=== PATIENT | male | born 1965 | race Caucasian/White ===

== ENCOUNTER → 2017-08-25 | Outpatient (CLI) | payer OTHER, MEDICAID ==
[~2017-08-25] MED LIST: ATOM80CA PO; CARV3.1212 PO; CHOL10002 PO; CYAN1TAB29 PO; TICA90TA PO; VENL150T PO; labetalol PO; lovastatin PO
[2017-08-25 10:27] LABS: BASOPHILS # (AUTO) 0.04 x10^3/uL (0-0.1); BASOPHILS % (AUTO) 1 % (0-1); EOSINOPHILS % (AUTO) 1 % (1-7); LYMPHOCYTES % (AUTO) 18 % (22-44); MD NO; MEAN CORPUSCULAR HEMOGLOBIN 32.4 pg (27.5-34.5); MEAN CORPUSCULAR HGB CONC 34.1 g/dL (33.2-36.2); MEAN CORPUSCULAR VOLUME 94.9 fL (81-97); MEAN PLATELET VOLUME 8.1 fL (7.4-10.4); MONOCYTES # (AUTO) 0.65 x10^3/uL (0.2-0.8); MONOCYTES % (AUTO) 8 % (2-9); NEUTROPHILS # (AUTO) 6.31 x10^3/uL (1.8-6.8); NEUTROPHILS % (AUTO) 73 % (42-75); PLATELET COUNT 243 x10^3/uL (130-400); RED BLOOD COUNT 5.14 x10^6/uL (4.38-5.82)
[2017-08-25 10:30] LABS: MICROSCOPIC NOT IND
[2017-08-25 10:32] LABS: INTERNATIONAL NORMALIZED RATIO 0.99 (0.93-1.1); PROTHROMBIN TIME 10.2 Seconds (9.6-11.5)
[2017-08-25 10:33] LABS: CULTURE INDICATED? NO
[2017-08-25 10:34] LABS: ANION GAP 5 mmol/L (5-15); CALCIUM 8.9 mg/dL (8.5-10.1); CHLORIDE 106 mmol/L (98-107); CREATININE 0.95 mg/dL (0.7-1.3)
== END | disposition home or self-care (01) ==
LOC: STAR 09:08 → EDBD 09:30
PROVIDERS: ATTEND Neurological Surgery
DX: Z01.818 Encounter for other preprocedural examination (principal); M51.36 Other intervertebral disc degeneration, lumbar region; I25.2 Old myocardial infarction
CPT/HCPCS: 36415; 71046; 80048; 81003; 85025; 85610; 85730; 93005

== ENCOUNTER 2017-09-03 12:04 | Observation (INO) | payer OTHER, MEDICAID ==
[2017-08-25 09:45] VITALS: BP 131/90
[~2017-09-03] VITALS: Ht 190.5 cm; Wt 98.3 kg
[2017-09-03] MEDS: LACTATED RINGERS 1,000 ML IV SCH (12:45)
[2017-09-03] MEDS ORDERED: FENTANYL PF 250 MCG/5ML ONE (13:45)
[2017-09-03] MEDS ORDERED: MIDAZOLAM 1 MG/ML, 2ML ONE (13:45)
[2017-09-03] MEDS ORDERED: ROCURONIUM 10 MG/ML,10ML ONE (13:46)
[2017-09-03] MEDS ORDERED: PROPOFOL 10 MG/ML, 20ML ONE (13:46)
[2017-09-03] MEDS ORDERED: NEOSTIGMINE 1 MG/ML, 10ML ONE (13:47)
[2017-09-03] MEDS ORDERED: SODIUM CHLORIDE 0.9% PF 10ML ONE (13:47)
[2017-09-03] MEDS ORDERED: GLYCOPYRROLATE 0.4 MG/2 ML, 2ML ONE (13:47)
[2017-09-03] MEDS ORDERED: CEFAZOLIN 1,000 MG ONE ×2 (13:48)
[2017-09-03] MEDS ORDERED: PROPOFOL 50 ML ONE ×2 (13:49→15:47)
[2017-09-03] MEDS ORDERED: THROMBIN 5,000 UNIT VIAL TP ONE (14:50)
[2017-09-03] MEDS ORDERED: BUPIVACAINE/PF 0.5% ONE (14:50)
[2017-09-03] MEDS ORDERED: BUPIVACAINE 0.25% ONE (14:50)
[2017-09-03] MEDS ORDERED: EPINEPHRINE 1 MG/ML, 1ML ONE (14:51)
[2017-09-03] MEDS ORDERED: BACITRACIN 50,000 UNIT ONE (14:51)
[2017-09-03] MEDS ORDERED: FENTANYL PF 100 MCG/2ML IV PRN (15:00)
[2017-09-03] MEDS ORDERED: LABETALOL 5MG/ML, 20ML IV PRN (15:00)
[2017-09-03] MEDS ORDERED: ACETAMINOPHEN 325 MG TABLET PO PRN (15:00)
[2017-09-03] MEDS ORDERED: ONDANSETRON 2MG/ML, 2ML IVPush PRN ×2 (15:00→17:00)
[2017-09-03] MEDS ORDERED: hydrALAzine 20 MG/ML, 1ML IV PRN (15:00)
[2017-09-03] MEDS ORDERED: PROMETHAZINE 12.5 MG SUPP PR PRN (15:00)
[2017-09-03] MEDS ORDERED: BUPIVACAINE LIPOSOME/PF INFIL ONE (15:00)
[2017-09-03] MEDS ORDERED: OXYcodone 5 MG/5 ML ORAL.SOL UDC PO PRN (15:00)
[2017-09-03] MEDS ORDERED: HYDROmorphone 1 MG/ML, 1ML IV PRN (15:00)
[2017-09-03] MEDS ORDERED: PROMETHAZINE 25 MG/ML, 1ML IV PRN (15:00)
[2017-09-03] MEDS ORDERED: FENTANYL PF 100 MCG/2ML ONE ×2 (15:39→16:04)
[2017-09-03] MEDS ORDERED: D5%-0.9% NACL+KCL 20MEQ 1,000 ML IV SCH (17:00)
[2017-09-03] MEDS ORDERED: morphine SULFATE 10 MG/ML, 1ML IVPush PRN (17:00)
[2017-09-03] MEDS ORDERED: BISACODYL 10 MG SUPP PR PRN (17:00)
[2017-09-03] MEDS ORDERED: HYDROcodone/APAP 10/325 MG TABLET PO PRN (17:00)
[2017-09-03] MEDS ORDERED: DIPHENHYDRAMINE 50 MG/ML, 1ML IVPush PRN (17:00)
[2017-09-03] MEDS ORDERED: SENNA/DOCUSATE TABLET PO PRN (17:00)
[2017-09-03] MEDS ORDERED: CYCLOBENZAPRINE 10 MG TABLET PO PRN (17:00)
[2017-09-03] MEDS ORDERED: METHOCARBAMOL 750 MG TABLET PO PRN (17:00)
[2017-09-03] MEDS ORDERED: PROMETHAZINE 25 MG/ML, 1ML IM PRN (17:00)
[2017-09-03] MEDS ORDERED: OXYcodone/APAP 5/325MG TABLET PO PRN (17:00)
[2017-09-03] MEDS ORDERED: HYDROcodone/APAP 5/325 TABLET PO PRN (17:00)
[2017-09-03] MEDS ORDERED: PHARMACY MAY ADJ FOR RENAL FX MC PRN (17:00)
[2017-09-03] MEDS ORDERED: MEPERIDINE/PF 50 MG/ML ONE (17:02)
[2017-09-03] MEDS: MEPERIDINE/PF 25MG/0.5ML IVPush PRN ×2 (17:05→17:17)
[2017-09-03] MEDS ORDERED: ACETAMINOPHEN 650 MG/20.3 ML UDC ONE (17:27)
[2017-09-03] MEDS ORDERED: OXYcodone 5 MG/5 ML ORAL.SOL UDC ONE (17:27)
[2017-09-03] MEDS: TICAGRELOR 90 MG TABLET PO SCH (21:00)
[2017-09-03] MEDS: SODIUM CHLORIDE FLUSH 10ML SYR IVF SCH (21:00)
[2017-09-03 23:43] VITALS: BP 118/82
[2017-09-03] MEDS: CEFAZOLIN PMX 1GM/50ML 50 ML IVPB SCH (23:43)
[2017-09-04] MEDS: LACTATED RINGERS 1,000 ML IV SCH (01:38)
[2017-09-04 03:59] VITALS: BP 104/55
[2017-09-04 06:52] VITALS: BP 111/60
[2017-09-04] MEDS: CEFAZOLIN PMX 1GM/50ML 50 ML IVPB SCH (07:30)
[2017-09-04] MEDS ORDERED: CEFAZOLIN PMX 1GM/50ML 50 ML IVPB SCH (08:30)
[2017-09-04] MEDS: TICAGRELOR 90 MG TABLET PO SCH (08:49)
[2017-09-04] MEDS: SODIUM CHLORIDE FLUSH 10ML SYR IVF SCH (08:49)
[2017-09-04] MEDS ORDERED: CARVEDILOL 3.125 MG TABLET PO SCH (09:00)
[2017-09-04] MEDS ORDERED: VENLAFAXINE XR 37.5MG CAP.ER.24H PO SCH (09:00)
[2017-09-04] MEDS ORDERED: ATOMOXETINE HCL 80 MG PO SCH (09:00)
[2017-09-04] MEDS ORDERED: MULTIVITS,STRESS FORMULA 1 TABLET PO SCH (09:00)
[2017-09-04] MEDS ORDERED: CHOLECALCIFEROL 1,000 UNIT TABLET PO SCH (09:00)
[2017-09-04 10:00] VITALS: BP 120/68
[2017-09-04] MEDS ORDERED: CYCL-259 PO (10:33)
[2017-09-04] MEDS ORDERED: METH750T87 PO (10:34)
[2017-09-04] MEDS ORDERED: CEPH-368 PO (10:35)
[2017-09-04] MEDS ORDERED: HYDR-3307 PO (10:35)
== END 2017-09-04 10:43 | disposition home or self-care (01) ==
LOC: EDBD → OUT 12:04 → ORIP 17:00 → 4NOR 18:22 → DCLOUNGE 09-04 10:30
PROVIDERS: ADMIT Neurological Surgery; ATTEND Neurological Surgery
DX: M48.061 Spinal stenosis, lumbar region without neurogenic claudication (principal); M51.36 Other intervertebral disc degeneration, lumbar region
CPT/HCPCS: 63047; 63048; 72100; 96365; 96375; 97162; C9290; G0378; G8978; G8979; G8980; J0171; J0690; J2175; J2250; J2704; J2710; J3010; J3490; J7120